=== PATIENT | male | born 1995 | race Asian ===

== ENCOUNTER → 2018-06-03 | Outpatient (CLI) | payer OTHER ==
[~2018-06-03] MED LIST: KEPPRA250 MG PO; MOTRIN 800800 MG/TAB PO; ZITHROMAX 250M250 MG PO
== END ==
LOC: COL.RAD 14:38
DX: G40.209 Localization-related (focal) (partial) symptomatic epilepsy and epileptic syndromes with complex partial seizures, not intractable, without status epilepticus (principal)
CPT/HCPCS: A9585

== ENCOUNTER 2019-03-14 00:14 | Emergency (ER) | payer SELFPAY ==
[~2019-03-14] VITALS: Ht 175 cm; Wt 100.0 kg
[2019-03-14 00:39] LABS: BASO % 0.4 % (0.0-2.0); EOS # 0.4 (0.0-0.7); EOS % 4.9 % (0-4.0); GRAN # 4.2 (1.4-6.5); GRAN % 49.9 % (42.2-75.2); HEMATOCRIT 45.8 % (42.0-52.0); LYMPH # 3.1 (1.2-3.4); LYMPH % 37.4 % (20.0-51.0); MEAN CELL VOLUME 85 fl (80.0-100.0); MEAN CORPUSCULAR HEMOGLOBIN 30 pg (27.0-31.0); MEAN CORPUSCULAR HGB CONC 35 g/dl (33.0-37.0); MEAN PLATELET VOLUME 9.7 fl (7.4-10.4); MONO # 0.6 (0.1-0.6); MONO % 7.2 % (1.7-9.3); PLATELET COUNT 340 K/mm3 (130-400); RED BLOOD COUNT 5.36 M/mm3 (4.20-5.60); REDCELL DISTRIBUTION WIDTH-CV 12.1 % (11.5-14.5)
[2019-03-14 00:48] LABS: ALBUMIN 4.9 gm/dL (3.5-5.0); BILIRUBIN,TOTAL 0.4 mg/dL (0.0-1.0); CALCIUM 9.4 mg/dL (8.4-10.2); CREATININE, serum 0.97 (0.66-1.25); POTASSIUM 3.9 mmol/L (3.4-5.0); TOTAL PROTEIN 8.6 gm/dL (6.4-8.2)
[2019-03-14 02:25] VITALS: BP 122/80; PULSE 66; TEMP 98.9
== END 2019-03-14 02:35 | disposition home or self-care (01) ==
LOC: COL.ER 00:14
PROVIDERS: Emergency Medicine
DX: K29.70 Gastritis, unspecified, without bleeding (principal); G40.909 Epilepsy, unspecified, not intractable, without status epilepticus
CPT/HCPCS: J2405; J3010; J7030